=== PATIENT | female | born 1990 | race African-American/Black ===

== ENCOUNTER 2017-05-09 21:37 | Emergency (ER) | payer MEDICAID ==
[~2017-05-09] VITALS: Ht 167.6 cm; Wt 59.7 kg
[2017-05-09 22:19] VITALS: BP 112/56
[2017-05-09] MEDS ORDERED: ONDANSETRON ODT 4 MG ONE (22:55)
[2017-05-09] MEDS ORDERED: ONDANSETRON ODT 4 MG PO ONE (23:00)
[2017-05-09 23:09] LABS: ALANINE AMINOTRANSFERASE 16 U/L (12-78); ALBUMIN 3.5 g/dL (3.4-5.0); CALCIUM 9.3 mg/dL (8.5-10.1); CREATININE 0.66 mg/dL (0.55-1.02)
[2017-05-09 23:13] LABS: ALKALINE PHOSPHATASE 51 U/L (45-117); BILIRUBIN,TOTAL 0.3 mg/dL (0.2-1.0); TOTAL PROTEIN 7.8 g/dL (6.4-8.2)
[2017-05-09 23:18] LABS: CHLORIDE 107 mmol/L (98-107)
[2017-05-09 23:19] LABS: ANION GAP 5 mmol/L (5-15)
[2017-05-09 23:30] LABS: MEAN CORPUSCULAR HEMOGLOBIN 16.7 pg (27.0-34.8); MEAN CORPUSCULAR VOLUME 57.2 fL (80-100); MEAN PLATELET VOLUME 7.1 fL (7.4-10.4); PLATELET COUNT 307 x10^3/uL (130-400); RED BLOOD COUNT 4.33 x10^6/uL (3.82-5.3); RED CELL DISTRIBUTION WIDTH 25.9 % (9.6-15.2)
[2017-05-09 23:33] LABS: MEAN CORPUSCULAR HGB CONC 29.2 g/dL (32.4-35.8)
[2017-05-09 23:56] LABS: MD YES
[2017-05-10 00:02] LABS: BASOS#(MANUAL) 0.07 x10^3/uL (0-0.1); BASOS% (MANUAL) 2 % (0-1); LYMPH#(MANUAL) 1.48 x10^3/uL (1-3.4); LYMPHS% (MANUAL) 40 % (22-44); MONOS% (MANUAL) 8 % (2-9); SEG#(MANUAL) 1.85 x10^3/uL (1.8-6.8); SEGS% (MANUAL) 50 % (42-75)
[2017-05-10 00:03] LABS: ANISOCYTOSIS 2+
[2017-05-10 00:04] LABS: HYPOCHROMIA 2+; MICROCYTOSIS 2+; OVALOCYTES 1+; TARGET CELLS 1+; TEAR DROPS 1+
[2017-05-10 00:05] LABS: <PLATELET ESTIMATE> ADEQUATE; <PLT MORPHOLOGY> NORMAL PLT MORPH; SCHISTOCYTES 1+
== END 2017-05-10 00:21 | disposition home or self-care (01) ==
LOC: ED 23:38
DX: A09 Infectious gastroenteritis and colitis, unspecified (principal); D50.9 Iron deficiency anemia, unspecified; F17.200 Nicotine dependence, unspecified, uncomplicated
CPT/HCPCS: 36415; 80053; 83690; 84703; 85025; 99284; Q0162